=== PATIENT | female | born 2000 | race Caucasian/White ===

== ENCOUNTER 2024-09-30 04:39 | Emergency (ER) | payer SELFPAY ==
[~2024-09-30] VITALS: Ht 170.2 cm; Wt 67.0 kg
[~2024-09-30 04:39] MED LIST: MACROBID 100 M100 MG PO
[2024-09-30] MEDS ORDERED: FLONASE ALLERG9.9 ML NAS (06:03)
[2024-09-30 06:23] VITALS: BP 130/77
== END 2024-09-30 06:24 | disposition home or self-care (01) ==
LOC: ED 04:39
DX: J30.9 Allergic rhinitis, unspecified (principal); Z11.52 Encounter for screening for COVID-19
CPT/HCPCS: 87651; U0002